=== PATIENT | female | born 1965 | race Caucasian/White ===

== ENCOUNTER 2020-12-17 12:33 | Emergency (ER) | payer SELFPAY ==
[~2020-12-17] VITALS: Ht 165.1 cm; Wt 68.0 kg
[2020-12-17 12:53] VITALS: BP 121/71
--- NOTE | 2020-12-17 13:15 | NUR ---
Patient came in to the er c/o on and off pain and numbness from right shoulder down to her elbow x 2 months, worsening x 2 days. On room air, breathing evenly and unlabored, kept comfortable, will continue to monitor accordingly.
[2020-12-17] MEDS ORDERED: PRED20TA PO (14:55)
[2020-12-17] MEDS ORDERED: IBUP-1955 PO (14:55)
--- NOTE | 2020-12-17 15:15 | NUR ---
Patient discharged to home in stable condition. Written and verbal after care instructions given. Patient verbalizes understanding of instruction.
== END 2020-12-17 15:15 | disposition home or self-care (01) ==
LOC: ER 12:33
DX: M79.601 Pain in right arm (principal); M25.511 Pain in right shoulder
CPT/HCPCS: 93971-TC

== ENCOUNTER 2025-05-18 10:03 | Emergency (ER) | payer MEDICAID ==
[~2025-05-18] VITALS: Ht 165.1 cm; Wt 59.0 kg
[~2025-05-18 10:03] MED LIST: IBUP-1955 PO; PRED20TA PO
[2025-05-18] MEDS: IV NS 0.9% 1,000 ML BAG IV ONE (10:36)
[2025-05-18 10:51] LABS: PLATELET COUNT (AUTO) 223 K/uL (150-450); RED BLOOD CELL COUNT(AUTO) 4.53 MIL/uL (4.0-5.2); RED CELL DISTRIBUTION WIDTH 14.0 % (11.5-15.0); WHITE BLOOD COUNT (AUTO) 12.8 K/uL (4.3-11.0)
[2025-05-18 10:53] LABS: APPEARANCE,URINE SLIGHTLY CLOUDY (CLEAR); BLOOD, URINE NEGATIVE Ery/uL (NEGATIVE); LEUKOCYTE ESTERASE ,URINE NEGATIVE (NEGATIVE); NITRITE, URINE NEGATIVE (NEGATIVE); UGLUCOSE NEGATIVE (NEGATIVE)
[2025-05-18 10:58] LABS: CALCIUM, SERUM 8.7 mg/dL (8.5-10.1); CREATININE 0.6 mg/dL (0.6-1.3); SODIUM SERUM 142.0 mmol/L (136-145); UREA NITROGEN, BLOOD 11.0 mg/dL (7-18)
[2025-05-18 11:07] LABS: ASPARTATE AMINOTRANSFERASE 9.0 U/L (15-37); TOTAL PROTEIN, SERUM 7.1 g/dL (6.4-8.2)
[2025-05-18 11:09] LABS: ADD URINE CULTURE YES
[2025-05-18] MEDS ORDERED: CIPR-262 PO (12:39)
[2025-05-18 12:43] VITALS: BP 130/78; TEMP 98.5; O2SAT 99
== END 2025-05-18 12:44 | disposition home or self-care (01) ==
LOC: ER 10:19
DX: K57.32 Diverticulitis of large intestine without perforation or abscess without bleeding (principal); I11.9 Hypertensive heart disease without heart failure; F17.200 Nicotine dependence, unspecified, uncomplicated; E78.5 Hyperlipidemia, unspecified; Z79.52 Long term (current) use of systemic steroids
CPT/HCPCS: 36415; 76856-TC; 80048-TC; 80076-TC; 81001; 83690-TC; 85025-TC; 87086-TC